=== PATIENT | male | born 1950 | race Caucasian/White ===

== ENCOUNTER → 2016-09-14 | Outpatient (CLI) | payer OTHER, MEDICARE ==
[2016-09-14 18:27] LABS: Basophils % (A) 1 %; CH 28.6; CHCM 32.2; Eosinophils # (A) 0.1 k/uL (0-0.7); Eosinophils % (A) 1 %; HGB 13.1 gm/dL (13.0-17.5); Luc % (Auto) 2; Lymphocytes # (A) 1.1 k/uL (1.0-4.8); Lymphocytes % (A) 21 %; MCH 28.5 pg (25.0-35.0); MCHC 31.9 g/dL (31.0-37.0); MCV 89.5 fL (80.0-100.0); Mean Platelet Volume 7.3; Monocytes # (A) 0.3 k/uL (0-1.0); Monocytes % (A) 5 %; Neutrophils # (A) 3.8 k/uL (1.3-7.7); Neutrophils % (A) 71 %; RBC 4.58 m/uL (4.30-5.90); RDW 14.3 % (11.5-15.5); WBC 5.4 k/uL (3.8-10.6); WBC (Perox) 5.68
[2016-09-14 19:03] LABS: ALT 59 U/L (21-72); AST 38 U/L (17-59); Alkaline Phosphatase 40 U/L (38-126); Anion Gap 14 mmol/L; Blood Urea Nitrogen 22 mg/dL (9-20); Calcium 10.4 mg/dL (8.4-10.2); Carbon Dioxide 23 mmol/L (22-30); Chloride 103 mmol/L (98-107); Cholesterol 150 mg/dL (<200); Glucose 225 mg/dL (74-99); Non-African American GFR(MDRD) 55 (>60 ml/min/1.73 sqM); Potassium 4.2 mmol/L (3.5-5.1); Sodium 140 mmol/L (137-145); Total Bilirubin 0.4 mg/dL (0.2-1.3); Total Protein 6.7 g/dL (6.3-8.2)
[2016-09-15 03:26] LABS: Hemoglobin A1C 6.8 % (4.2-6.1)
== END ==
LOC: MMGSC 09:53
PROVIDERS: ATTEND Internal Medicine
DX: E11.9 Type 2 diabetes mellitus without complications (principal); E78.5 Hyperlipidemia, unspecified; E03.9 Hypothyroidism, unspecified
CPT/HCPCS: 36415; 80053; 82465; 83036; 84443; 85025

== ENCOUNTER → 2021-01-27 | Outpatient (CLI) | payer MEDICARE ==
--- NOTE | 2021-01-27 08:36 | CT ---
EXAMINATION TYPE: CT lumbar spine wo con DATE OF EXAM: 01/27/2021 COMPARISON: None HISTORY: 70-year-old male M48.062, Lumbar stenosis TECHNIQUE: Contiguous axial scanning of the lumbar spine without IV contrast. Coronal and sagittal re constructions performed. CT DLP: 1641.90 mGycm Automated exposure control for dose reduction was used. FINDINGS: Moderate atherosclerotic calcifications throughout the abdominal aorta and iliac arteries. Fusiform i nfrarenal abdominal aortic ectasia up to 2.9 cm. Ectasia proximal left common iliac artery at 1.9 cm. Ectasia distal left common iliac artery at 1.8 cm. Mild degenerative spurring at the SI joints. Transitional lumbosacral segment with a lumbarized S1. Post surgical changes of L5-S1 posterior lumbar fusion with laminectomies. Again, there appears to be a lumbarized S1. Fixed grade 1 anterolisthesis at the fused L5-S1 level. Degenerative grade 1 anterolisthesis above the fusion at L4-L5 secondary to hypertrophic facet arthro mayelin. Along with ligamentum flavum thickening and mild disc bulge, there may be a mild narrowing of the spi nal canal here and L4-L5. 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 Otherwise, no evident canal compromise. Vertebral body heights are preserved. On the left, changes result in moderate neuroforaminal narrowing at the fused L5-S1 level and moderat e above the fusion at L4-L5 secondary to disc bulge and facet arthropathy. Mild at multiple additiona l levels. On the right, there may be moderate to severe bony neural foraminal narrowing at the fused L5-S1 leve l, moderate at S1-S2 secondary to bony hyperostosis, and mild at multiple additional levels. IMPRESSION: 1. TRANSITIONAL LUMBOSACRAL SEGMENT DENOTED ON THIS EXAM A LUMBARIZED S1. THE POSTERIOR LUMBAR FUS ION CHANGES ARE BEING LABELED L5-S1 WITH CORRESPONDING LAMINECTOMIES. FIXED GRADE 1 ANTEROLISTHESI S HERE AT THE FUSED LEVEL. 2. FACET ARTHROPATHY WITH A DEGENERATIVE GRADE 1 ANTEROLISTHESIS ABOVE THE FUSION AT L4-L5. MILD NARR OWING OF THE SPINAL CANAL HERE. 3. VARIABLE NEUROFORAMINAL NARROWING IN THE MID AND LOWER LUMBAR SPINE OUTLINED ABOVE. 4. ECTATIC INFRARENAL ABDOMINAL AORTA AT 2.9 CM. ECTATIC LEFT COMMON ILIAC ARTERY MEASURING UP TO 1.9 CM.
== END | disposition home or self-care (01) ==
LOC: RADCTMAIN 06:27
PROVIDERS: ATTEND Physical Medicine & Rehabilitation
DX: M47.816 Spondylosis without myelopathy or radiculopathy, lumbar region (principal); M43.16 Spondylolisthesis, lumbar region; Z98.1 Arthrodesis status
CPT/HCPCS: 72131